=== PATIENT | female | born 1975 | race African-American/Black ===

== ENCOUNTER 2017-03-06 08:57 | Day surgery (SDC) | payer BC, OTHER ==
[~2017-03-06 08:57] MED LIST: RINGER'S SOLUTION,LACTATED 1,000 ML IV PRN; ceFAZolin SODIUM 2 GM in DEXTROSE 5 % IN WATER 50 ML IV PRN
[2017-03-06 09:22] LABS: Hematocrit 36.7 % (37.0-47.0); Hemoglobin 12.4 gm/dL (12.5-16.0); Mean Cell Volume 92.4 fl (78-100); Mean Corpuscular Hemoglobin 31.2 pg (27-31); Mean Corpuscular Hgb Conc 33.8 g/dl (32-36); Mean Platelet Volume 9.5 fl (6.0-9.5); Neutrophil # 5.2 K/mm3 (1.3-6.0); Neutrophil % 62.2 % (42-75.0); Platelet Count 366 K/mm3 (150-450); Red Blood Count 3.97 M/mm3 (4.2-5.4); Red Cell Distribution Width 13.2 % (11.5-14.0); White Blood Count 8.3 K/mm3 (4.0-10.5)
[2017-03-06 09:38] LABS: Albumin * 3.6 gm/dl (3.4-5.0); Anion Gap 12.8 mmol/L (6.8-13.8); BUN/Creatinine Ratio 8.1 (9.0-21.6); Bilirubin, Total 0.6 mg/dL (0.0-1.1); Ca. Corrected For Albumin 8.9 mg/dL (8.4-10.2); Calcium * 8.9 mg/dL (7.9-10.9); Carbon Dioxide 26.7 mmol/L (24-32.6); Potassium 3.5 mmol/L (3.4-4.6)
[2017-03-06] MEDS ORDERED: RINGER'S SOLUTION,LACTATED 1,000 ML IV ONE ×3 (10:15→15:51)
[2017-03-06] MEDS: ceFAZolin SODIUM 1 GM VIAL IV ONE (11:00)
[2017-03-06] MEDS ORDERED: BUPIVACAINE HCL 50 ML VIAL IJ ONE (13:25)
[2017-03-06] MEDS ORDERED: RINGER'S SOLUTION,LACTATED 1,000 ML IV PRN (13:53)
--- NOTE | 2017-03-06 13:53 | OR ---
Operative Report - Dictated Report Narrative: DATE OF PROCEDURE: 03/06/2017 PROCEDURE: 1. Diagnostic laparoscopy 2. Laparoscopic bilateral salpingectomy and removal of cervical stump 3. Diagnostic cystoscopy. ANESTHESIA: General, endotracheal intubation. PREOPERATIVE DIAGNOSES: 1. Abnormal uterine bleeding 2. Chronic pelvic pain 3. Dysmenorrhea 4. Dyspareunia 5. Suspected pelvic endometriosis 6. status post laparoscopic supracervical hysterectomy 7. status post umbilical hernia repair with mesh 8. status post laparoscopic cholecystectomy POSTOPERATIVE DIAGNOSES: 1. Abnormal uterine bleeding 2. Chronic pelvic pain 3. Dysmenorrhea 4. Dyspareunia 5. Pelvic scar tissues without evidence of pelvic endometriosis 6. status post laparoscopic supracervical hysterectomy 7. status post umbilical hernia repair with mesh 8. status post laparoscopic cholecystectomy SURGEON: Lavonne Juan M.D. ELECTRONIC PAGE MAKEUP SYSTEM OPERATOR: Wiliam Newman FINDINGS: 1. Omentum adhesions at the umbilical area and pelvic scar tissues in bilateral pelvic side aburto without evidence of pelvic endometriosis. 2. Both ovaries and tubes appeared normal. There may be a small simple cyst on the right ovary. Cervical stump measured about 3 x 4 cm. 3. On cystoscopy, the bladder appeared intact and bilateral ureteral jets were seen. SPECIMENS: 1). Left fallopian tube, 2) Right fallopian tube, and 3) cervical stump DRAINS: None. URINE OUTPUT: 675 ml BLOOD LOSS: 20 ml or less INTRAOPARATIVE IV FLUIDS: 1300 ml COMPLICATIONS: None. DESCRIPTION OF PROCEDURE: The patient consented to the operation and was taken to the operating room. She was placed on the operating table supine. SCDs were placed on her lower extremities. General anesthesia was induced. Tho grams of ancef was given by IV prior to anesthesia induction. She was repositioned in the dorsal lithotomy position. Her right arm was tucked at her side under the drape. Exam under anesthesia revealed a normal cervix and no adnexal masses. The abdomen was prepped with Chloraprep and the vagina was prepped with Betadine. She was draped in the usual sterile fashion. A time-out procedure was conducted to confirm the correct patient for the correct procedure. After time-out, a Barry catheter was placed into the bladder. A bivalve speculum was placed into the vagina. The vagina and the cervix were prepped with Betadine one more time. The anterior cervix was grasped with a single-tooth tenaculum. Cervical canal measured about 3.5 cm. A medium VCare uterine manipulator was placed with the balloon deflated and sit inside the cervical canal. The single- tooth tenaculum was removed. Sandy speculum was removed. The upper VCare cup was advanced into the vagina to hug the cervix. The lower VCare cup was advanced into the vagina to align with the upper VCare cup and to provide pneumoperitoneum for the procedure. The lower VCare cup was fastened to the uterine manipulator. The surgeon then changed gloves and attention was paid to the abdomen. Due to her history of umbilical hernia repaired with mesh of 8 cm size, it was decided to use the Pulmer's point for Veress needle insertion. An OG tube was inserted by the aneshesia to deflate the stomach. A Veress needle was inserted 3 cm below the costal margin at the left midclavicular line. Intraabdominal placement was confirmed with a saline drop test and with low entry pressure of 4 mmHg. The abdomen was insufflated with CO2 gas to an intraabdominal pressure of 15 mmHg. The Veress needle was removed. A small midline incison was made mid way between the umbilicus and the pubic symphysis to avoid the umbilical mesh. A 5 mm trocar with the laparoscope was inserted through this incision into the abdomen. Intraabdominal placement was confirmed with the laparoscope. Survey of the entry site revealed no trauma to the underlying structures. The omentum adhesion was above this trocar and under previous umbilicus hernia repair with mesh. The omentum adhesion did not interfere with the view to the pelvis, so no action or lysis of adhesion was needed here. The patient was then placed in Trendelenburg position. Three 5 mm trocars were placed in the lower abdomen. Both the left and the right lower quadrant trocars (5 mm) were placed superior and medial to the anterior superior iliac spine to avoid vessels and nerves. A suprapubic trocar ( 5 mm) was placed in the midline. All trocars were placed under the direct visualization of the laparoscope. Survey of the abdomen and pelvis revealed the findings noted above. Attention was now turned to the left side. The left fallopian tube was elevated. Brief dissection was carried out to release the left ovary and tube from the pelvic side wall. The mesosalpinx was divided with the Thunderbeat. The left tube was removed and brought out through the 5 mm trocar. Attention was now turned to the right side. The right fallopian tube was elevated. The mesosalpinx was divided with the Thunderbeat. The right tube was removed and brought out through the 5 mm trocar. The vaginal fornix was seen well through the VCare cup. The Thunderbeat was used to dissect the bladder away from the cervical stump. Both the cardinal ligament and uterosacral ligament complex were dissected and divided on both side with the Thunderbeat. An anterior colpotomy was made over the VCare cup groove. Entry into the vagina was without complications. A circumferential incision was made along the vaginal cervical junction using the VCare cup groove as a guide. The cervix was completely divided from the vagina. The surgeon moved to the vaginal area to retrieve the specimen. The VCare uterine manipulator was removed. The cervical stump was grasped with a single tooth tenaculum and removed through the vagina. The vagina was packed with 2 moist laps to keep the pneumoperitoneum. The surgeon then changed gloves and attention was paid back to the abdomen. The pelvis was thoroughly irrigated with saline. The vaginal opening was closed transversely with 0 Vicryl Endoknot suture in an interrupted fashion using intracorporeal and extracorporeal knot tying. The uterosacral ligament was sutured to the vaginal cuff corner for cuff support. The pelvis was irrigated with saline. Extra fluid was suctioned out from the abdomen and pelvis. There was hemostasis in all sites. The patient was taken out of Trendelenburg. Three lower abdominal trocars were removed. The abdomen was deflated. The midline abdominal trocar with the laparoscope was removed. The skin incision was closed with 4-0 Monocryl suture and 2 to 3 cc of 0.25% Marcaine was infiltrated around each incision for post op pain management. The incisions were covered with Steri-Strips. The vaginal packing was removed. The Barry catheter was removed. A diagnostic cystoscopy was performed. A 70-degree cystoscope was introduced through the urethra into the bladder. Exam of the bladder revealed the bladder was intact. There were urine jets coming out from the left as well as the right ureteral orifice, confirming the integrity of ureters. The cystoscope was removed. The Barry catheter was not replaced. The patient tolerated the procedure well. All counts were correct and the patient was taken to the recovery room in stable condition. Lavonne Juan MD
[2017-03-06] MEDS ORDERED: HYDROcodone/ACETAMINOPHEN 1 EACH TABLET PO PRN (13:55)
[2017-03-06] MEDS ORDERED: ONDANSETRON HCL/PF 2 MG/ML VIAL IV PRN (15:45)
[2017-03-07 13:46] VITALS: BP 132/82
== END 2017-03-06 08:58 | disposition home or self-care (01) ==
LOC: AMB 08:57
PROVIDERS: ATTEND Obstetrics & Gynecology
PROC: 0UB24ZZ Excision of Bilateral Ovaries, Percutaneous Endoscopic Approach (ICD-10-PCS; principal; 2017-03-06)
PROC: 0UT74ZZ Resection of Bilateral Fallopian Tubes, Percutaneous Endoscopic Approach (ICD-10-PCS; 2017-03-06)
PROC: 0UTC4ZZ Resection of Cervix, Percutaneous Endoscopic Approach (ICD-10-PCS; 2017-03-06)
DX: N93.8 Other specified abnormal uterine and vaginal bleeding (principal); G89.29 Other chronic pain; Z90.711 Acquired absence of uterus with remaining cervical stump; N94.6 Dysmenorrhea, unspecified; R10.2 Pelvic and perineal pain; Z79.02 Long term (current) use of antithrombotics/antiplatelets; I25.10 Atherosclerotic heart disease of native coronary artery without angina pectoris; N94.10 Unspecified dyspareunia; I10 Essential (primary) hypertension; E66.9 Obesity, unspecified; Z68.38 Body mass index [BMI] 38.0-38.9, adult; J45.909 Unspecified asthma, uncomplicated; Z86.73 Personal history of transient ischemic attack (TIA), and cerebral infarction without residual deficits; Z79.899 Other long term (current) drug therapy

== ENCOUNTER 2019-04-21 18:44 | Observation (INO) ==
[2019-04-21] MEDS ORDERED: ALBUTEROL SULFATE/IPRATROPIUM 3 ML NEBU IH ONE ×3 (19:09→23:24)
[2019-04-21 19:59] LABS: Hematocrit 38.7 % (37.0-47.0); Hemoglobin 12.7 gm/dL (12.5-16.0); Mean Cell Volume 92.8 fl (78-100); Mean Corpuscular Hemoglobin 30.5 pg (27-31); Mean Corpuscular Hgb Conc 32.8 g/dl (32-36); Mean Platelet Volume 9.7 fl (8-12.5); Neutrophil # 5.2 K/mm3 (1.3-6.0); Neutrophil % 49.1 % (42-75.0); Platelet Count 319 K/mm3 (150-450); Red Blood Count 4.17 M/mm3 (4.2-5.4); Red Cell Distribution Width 14.3 % (11.5-14.0); White Blood Count 10.6 K/mm3 (4.0-10.5)
[2019-04-21 20:16] LABS: ALT 19 U/L (19-67); AST 8 U/L (0-48); Albumin * 3.1 gm/dl (3.4-5.0); Alkaline Phosphatase * 67 U/L (50-170); Anion Gap 13.3 mmol/L (6.8-13.8); Bilirubin, Total 0.2 mg/dL (0.0-1.1); Blood Urea Nitrogen 17 mg/dL (3-23); Ca. Corrected For Albumin 8.7 mg/dL (8.4-10.2); Calcium * 8.3 mg/dL (7.9-10.9); Carbon Dioxide 26.1 mmol/L (24-32.6); Chloride 107 mmol/L (97-106); Glucose * 121 mg/dL (70-110); Potassium 3.4 mmol/L (3.4-4.6); Sodium 143 mmol/L (132-142); Total Protein 6.5 gm/dL (6.2-8.2); Troponin I Less than 0.017 ng/mL (0.00-0.10)
--- NOTE | 2019-04-21 20:58 | ERNOTE ---
Time Seen by Provider: 04/21/19 20:56 Stated Complaint: ASTHMA/BRONCHITIS/PNEUMONIA Presenting Symptoms:: cough, sore throat, runny nose, fever Source: patient, family, RN notes reviewed Exam Limitations: other - loss of voice Immunizations: IMMUNIZATION HX Immunizations Up to Date Yes History of Influenza Vaccine Yes Hx Pneumococcal Vaccination No Allergies/Adverse Reactions: Allergies adhesive tape Allergy (Intermediate, Verified 04/21/19 19:03) Hives Foam Surgical Tape levofloxacin [From Levaquin] Allergy (Mild, Verified 04/21/19 19:03) RASH ketorolac tromethamine [From Toradol] Adverse Reaction (Severe, Verified 04/21/19 19:03) FLARES UP ASTHMA tramadol Adverse Reaction (Severe, Verified 04/21/19 19:03) FLARES UP ASTHMA aspirin Adverse Reaction (Intermediate, Verified 04/21/19 19:03) FLARES UP ASTHMA ibuprofen [From Motrin] Adverse Reaction (Intermediate, Verified 04/21/19 19:03) FLARES UP ASTHMA latex Adverse Reaction (Intermediate, Verified 04/21/19 19:03) rash NSAIDS (Non-Steroidal Anti-Inflamma Adverse Reaction (Intermediate, Verified 04/21/19 19:03) FLARE UP ASTHMA fluoxetine [From Prozac] Adverse Reaction (Mild, Verified 04/21/19 19:03) Diarrhea gabapentin Adverse Reaction (Mild, Verified 04/21/19 19:03) Other weight gain isosorbide Adverse Reaction (Mild, Verified 04/21/19 19:03) Headache nortriptyline Adverse Reaction (Mild, Verified 04/21/19 19:03) WEIGHT GAIN IV contrast Adverse Reaction (Severe, Uncoded 04/21/19 19:03) Anaphylaxis Home Medications: HOME MEDICATIONS diphenhydrAMINE HCL [Benadryl] 25 mg PO Q6H PRN 08/01/17 [Last Taken 08/24/17] albuterol sulfate 90 mcg/actuation aerosol inhaler 2 puff IH .Every 4 hours PRN #8.5 g 10/09/18 [Last Taken Unknown] nitroglycerin 0.4 mg sublingual tablet 0.4 mg SL [id number] PRN #100 tab 10/09/18 [Last Taken Unknown] escitalopram oxalate 20 mg tablet 20 mg PO DAILY #30 tab 11/04/18 [Last Taken Unknown] zolpidem 10 mg tablet 10 mg PO HS PRN #30 tab 11/20/18 [Last Taken Unknown] amlodipine 5 mg tablet 5 mg PO DAILY 12/11/18 [Last Taken Unknown] simvastatin 20 mg tablet 20 mg PO DAILY 12/11/18 [Last Taken Unknown] montelukast 10 mg tablet 10 mg PO QPM #30 tab 12/16/18 [Last Taken Unknown] metoprolol tartrate 50 mg tablet 25 mg PO BID #30 tab 12/21/18 [Last Taken 12/25/18 07:30] Ondansetron [Zofran Odt] 8 mg PO Q6H PRN #20 tab.rapdis 12/26/18 [Last Taken Unknown] polyethylene glycol 3350 17 gram/dose oral powder 8.5 g PO DAILY #255 g 01/27/19 [Last Taken Unknown] dipyridamole 75 mg tablet 75 mg PO TID tab 02/17/19 [Last Taken Unknown] dicyclomine 10 mg capsule See Rx Instructions .ROUTE .COMPLEX #120 unspecified 02/25/19 [Last Taken Unknown] acetaminophen 300 mg-codeine 30 mg tablet 2 tab PO BID PRN #100 tab 03/18/19 [Last Taken Unknown] clonazepam 1 mg tablet 1 mg PO BID #60 tab 03/18/19 [Last Taken Unknown] cyclobenzaprine 10 mg tablet 10 mg PO HS #14 tab 03/18/19 [Last Taken Unknown] cefdinir 300 mg capsule 300 mg PO BID 10 Days #20 cap 04/14/19 [Last Taken Unknown] oxycodone-acetaminophen 5 mg-325 mg tablet 1 tab PO Q4H PRN #30 tab 04/14/19 [Last Taken Unknown] prednisone 10 mg tablet 30 mg PO BID #60 tab 04/14/19 [Last Taken Unknown] ipratropium 0.5 mg-albuterol 3 mg (2.5 mg base)/3 mL nebulization soln 3 ml IH QID PRN #15 ml 04/15/19 [Last Taken Unknown] nebulizers See Rx Instructions .ROUTE .MEDSUPPLY #1 ea 04/15/19 [Last Taken Unknown] - History of Present Ilness Narrative: Patient was here on the 4th, treated for asthma, seemed to be getting better. Today she presents and she is feeling worse again. Her throat hurts, her head hurts, it hurts to breathe, she is wheezing and lacking energy. She states that her entire body hurts, her chest, her abdomen, her extremities, "everything". Timing: constant, getting worse Severity: severe Frequency/Possible Cause: Reports: occasional episodes Modifying Factors - Improves: Reports: nothing Modifying Factors - Worsens: Reports: activity, coughing, deep breath Associated Symptoms: Reports: chest pain/soreness, cough, shortness of breath, wheezing, facial pain, nasal congestion, nasal drainage, dizziness, lightheadedness, headache, sore throat, muscle aches, fever/chills Prior Treatment: Reports: recently seen, treated by physician Review of Systems - Review of Systems Constitutional: Present: recent illness, fever, chills, weakness, fatigue, malaise EYE: Present: eye pain. Absent: eye discharge, blurred vision, double vision ENT: Present: sore throat. Absent: ear pain, ear discharge Respiratory: Present: shortness of breath, cough, wheezing Cardiology: Present: chest pain. Absent: palpitations Gastrointestinal/Abdominal: Present: nausea, abdominal pain. Absent: vomiting, diarrhea Genitourinary: Absent: frequency, pain, dysuria Musculoskeletal: Present: back pain, muscle pain, joint pain Skin: Absent: rash, dryness, lesions Neurological: Present: depressed, weakness Endocrine: Absent: excessive sweating, flushing Psych: Present: depressed Medical History (Last Reviewed 04/21/19 @ 21:18 by Tala Jefferson) Injury of left shoulder (Acute) Obesity (Chronic) Knee pain, bilateral (Chronic) Chronic left hip pain (Chronic) Shoulder pain, left (Chronic) Onset Date: Unknown Encounter for well woman exam with routine gynecological exam (Acute) Insomnia (Chronic) Otitis externa (Acute) most likely being exacerbated by congestions Anxiety (Acute) Situational anxiety (Chronic) Situational stress (Acute) Dysphagia (Acute) Hypothyroidism (Chronic) Lumbar disc herniation (Acute) Right lumbar radiculopathy (Acute) SLAP lesion of left shoulder (Chronic) BMI 40.0-44.9, adult (Chronic) Migraine (Chronic) Generalized anxiety disorder (Chronic) Hyperlipidemia (Chronic) Benign essential hypertension (Chronic) Moderate persistent asthma (Chronic) Abnormal mammogram (Chronic) CAD (coronary artery disease) (Chronic) Elevated antinuclear antibody (HARJIT) level (Acute) Low back pain (Chronic) Arthritis (Chronic) Chest pain of uncertain etiology (Acute) Unstable angina (Acute) Chest pain, rule out acute myocardial infarction (Acute) Musculoskeletal chest pain (Acute) Chest pain (Chronic) Chronic recurrent Arthritis of left acromioclavicular joint (Resolved) Subacromial bursitis of left shoulder joint (Chronic) Pleurisy (Acute) Bronchitis (Acute) Back pain (Acute) AC (acromioclavicular) arthritis Onset Date: 05/10/16 Anemia Onset Date: 09/20/16 Anxiety Asthma Benign essential hypertension Onset Date: 03/2016 Bilateral sciatica Onset Date: 04/2016 CAD (coronary artery disease) Onset Date: 07/2017 Cardiac stent age 35 Chronic chest pain Onset Date: 06/2017 Chronic pain syndrome Onset Date: 12/2015 Heart palpitations Onset Date: ~12/2015 Hyperlipemia Hyperlipidemia Onset Date: 12/2015 Inguinal hernia Onset Date: 09/2016 doris Left shoulder pain Onset Date: 02/2016 Lives with spouse Migraine Onset Date: 12/2015 Obesity Pelvic pain Onset Date: 11/2016 possibly endometriosis Shoulder impingement Onset Date: 04/2016 Small vessel disease Onset Date: 07/2017 Smoking never Subacromial bursitis of left shoulder joint Onset Date: 04/2016 Vitamin B12 deficiency alcohol none maker heart blockage Onset Date: ~02/10/11 Kidney stones Onset Date: ~07/2017 Surgical History: Surgical History (Last Reviewed 04/21/19 @ 21:18 by Tala Jefferson) Cholecystectomy planned (Acute) H/O arthroscopy of shoulder Onset Date: 06/10/17 lt with biceps tenotomy, subacromial busectomy, distal clavicle resection-Dr. Sanchez H/O bilateral salpingectomy Onset Date: 03/06/17 Dr. Juan H/O cystoscopy Onset Date: 03/06/17 Dr. Juan diagnostic H/O heart artery stent Onset Date: 02/10/11 H/O lithotripsy Onset Date: 08/15/17 left kidney, around november or december of 2018 H/O tubal ligation Onset Date: 1987 History of cholecystectomy Onset Date: ~2013 lap History of dilatation and curettage Onset Date: 03/06/17 Dr. Juan History of hernia repair Onset Date: ~2014 2012-left inguinal. 2015-umbilical History of partial hysterectomy x2 for a full removal History of renal stent Onset Date: 08/15/17 Dr. Holt- at [facility] S/P epidural steroid injection Onset Date: 08/25/17 at [facility]/ low back diagnostic laparoscopy Onset Date: 03/06/17 Dr. Juan excision of cervical stump by abdominal approach Onset Date: 03/06/17 Dr. Juan Family History: Family History (Last Reviewed 04/21/19 @ 21:18 by Tala Jefferson) Father Asthma full health history unknown Mother Diabetes type 2 full health history unknown Son Type 1 diabetes mellitus Daughter Alive and well Son Alive and well Sister Breast cancer Brother Alive and well Social History: (Last Reviewed 04/21/19 @ 21:18 by Tala Jefferson) Social History: adopted: No Marital status: lives independently: No household members: spouse, children caregiver/support person: No current occupational status: unemployed Highest education level completed: Associate degree: academi Service: No Tobacco: Smoking Status: Never smoker Alcohol: alcohol intake: current Alcohol type: wine alcohol intake frequency: holiday/special occasion details: glass of wine or 2 Substance Use: substance use type: marijuana Dietary Habits: caffeine: Yes Type: coffee Physical Exam - Physical Exam General Appearance: Present: wd/wn, alert, moderate distress, lethargic Head Exam: Present: normal inspection, no evidence of injury Eye Exam: Normal inspection: bilateral, PERRL: bilateral, EOMI: bilateral Ears, Nose, Throat: Present: dry mucous membranes Neck: Present: normal inspection, nontender Respiratory: Present: accessory muscle use, wheezing Cardiovascular/Chest: Present: regular rate, rhythm, no murmur, normal peripheral pulses Gastrointestinal/Abdominal: Present: normal bowel sounds, nontender, nondisten ded, soft Extremity Exam: Present: normal inspection, non-tender, normal range of motion, no edema Neurological Exam: Present: alert, oriented Skin Exam: Present: normal color, warm/dry Lymphatic Exam: Present: no adenopathy Progress - Results and Orders Patient's Lab Results:: I have reviewed the patient's lab results. Results and Orders: Laboratory Results - last 24 hr 04/21/19 04/21/19 04/21/19 19:55 19:55 21:17 WBC 10.6 H RBC 4.17 L Hgb 12.7 Hct 38.7 MCV 92.8 MCH 30.5 MCHC 32.8 RDW 14.3 H Plt Count 319 MPV 9.7 Immature Gran % (Auto) 0.40 Immature Gran # (Auto) 0.04 H Neutrophils % 49.1 Lymphocytes % 44.0 Monocytes % 5.7 Eosinophils % 0.7 Basophils % 0.1 Nucleated RBC % 0.0 Neutrophils # 5.2 Lymphocytes # 4.68 H Monocytes # 0.6 Eosinophils # 0.1 Absolute Basophils 0.0 Sodium 143 H Plasma Sodium 143 H Potassium 3.4 Chloride 107 H Carbon Dioxide 26.1 Anion Gap 13.3 BUN 17 Creatinine 0.85 Est GFR (Non-Af Amer) 94 BUN/Creatinine Ratio 20.0 Random Glucose 121 H Calcium 8.3 Calcium Adj for Albumin 8.7 Total Bilirubin 0.2 AST 8 ALT 19 Alkaline Phosphatase 67 Troponin I Less than 0.017 Total Protein 6.5 Albumin 3.1 L Influenza Type A Ag Negative Influenza Type B Ag Negative - Vital Signs Patient's Vital Signs:: I have reviewed the patient's vital signs. Vital Signs: Vital Signs 04/21/19 18:58 04/21/19 19:15 04/21/19 19:30 Temperature 36.7 C 36.9 C Pulse Rate 93 100 86 Respiratory Rate 24 H 24 H 20 Blood Pressure 137/98 H 132/93 H O2 Sat by Pulse Oximetry 95 98 95 04/21/19 20:20 Temperature 36.8 C Pulse Rate 88 Respiratory Rate 22 H Blood Pressure 137/83 O2 Sat by Pulse Oximetry 94 - Progress/Reassessment Chief Complaint: Asthma Progress Note-Subjective: 04/22/19 05:27 Patient continued to have problems breathing. I tried Solumedrol, breathing treatments, without a good response. She has been huffing and puffing. I went and told the patient that I thought she needed to be admitted, the patient agreed, stating she didn't want to but she felt that she did need to be admitted. I called Dr. Schneider (physician epic application coordinator) at 01:47 AM. He agreed to admit the patient as an observation patient. Departure Clinical Impression: Moderate persistent asthma Qualifiers: Asthma complication type: with acute exacerbation Qualified Code(s): J45.41 - Moderate persistent asthma with (acute) exacerbation Asthma exacerbation Qualifiers: Asthma severity: moderate Asthma persistence: persistent Qualified Code(s): J45.41 - Moderate persistent asthma with (acute) exacerbation - Departure Disposition: Short Term Hospital Inpatient Condition: Stable
[2019-04-21] MEDS ORDERED: METHYLPREDNISOLONE SOD SUCC/PF 125 MG/2 ML VIAL IV ONE (21:12)
[2019-04-21] MEDS ORDERED: NORMAL SALINE 1,000 ML IV PRN (21:13)
[2019-04-21] MEDS ORDERED: MORPHINE SULFATE 4 MG/ML SYRG IV ONE ×2 (21:34→22:30)
[2019-04-22] MEDS ORDERED: ALBUTEROL SULFATE/IPRATROPIUM 3 ML NEBU IH SCH (00:30)
[2019-04-22] MEDS ORDERED: ALBUTEROL SULFATE 2.5 MG/0.5 ML VIAL.NEB IH PRN (00:32)
[2019-04-22] MEDS: ALBUTEROL SULFATE/IPRATROPIUM 3 ML NEBU IH SCH ×4 (01:12→13:23)
[2019-04-22] MEDS ORDERED: diphenhydrAMINE HCL 25 MG CAPSULE PO PRN (02:29)
[2019-04-22] MEDS: oxyCODONE HCL/ACETAMINOPHEN 1 TAB TABLET PO PRN ×3 (02:49→11:31)
[2019-04-22] MEDS ORDERED: NORMAL SALINE 1,000 ML IV PRN (08:17)
[2019-04-22] MEDS ORDERED: ENOXAPARIN SODIUM 40 MG/0.4 ML SYRG SC SCH (08:30)
[2019-04-22] MEDS ORDERED: predniSONE 20 MG TABLET PO SCH (09:00)
[2019-04-22] MEDS ORDERED: ACETAMINOPHEN 325 MG TABLET PO PRN (10:25)
[2019-04-22] MEDS ORDERED: NITROGLYCERIN 0.4 MG/TAB BTL SL PRN (10:25)
[2019-04-22] MEDS ORDERED: ZOLPIDEM TARTRATE 10 MG TABLET PO PRN (10:25)
[2019-04-22] MEDS ORDERED: ONDANSETRON 8 MG TAB.RAPDIS PO PRN (10:25)
[2019-04-22] MEDS ORDERED: MAGNESIUM HYDROXIDE 30 ML UDC PO SCH (10:30)
[2019-04-22] MEDS ORDERED: METOPROLOL TARTRATE 25 MG TABLET PO SCH (10:45)
[2019-04-22] MEDS ORDERED: IPRATROPIUM BROMIDE 0.5 MG/2.5 ML VIAL.NEB IH SCH (11:00)
[2019-04-22] MEDS ORDERED: DOXYCYCLINE HYCLATE 100 MG TABLET PO SCH (11:15)
[2019-04-22 11:32] LABS: Urine Bilirubin Negative (NEGATIVE); Urine Blood Negative /ul (NEGATIVE); Urine Ketone Negative (NEGATIVE); Urine Nitrite Negative (NEGATIVE); Urine Protein Negative (NEGATIVE); Urine Urobilinogen Normal (NORMAL); Urine pH 7.5 pH (5.0-7.0)
[2019-04-22 11:45] LABS: Urine Appearance Clear (CLEAR); Urine Color Yellow
[2019-04-22 11:46] LABS: Urine Bacteria TRACE; Urine RBC None Seen /hpf (0-5); Urine WBC TRACE /hpf (0-5)
--- NOTE | 2019-04-22 12:23 | HP ---
Chief Complaint - Chief Complaint Date of Service: 04/22/19 Time of Service: 11:40 Chief Complaint: Dyspnea History of Present Illness: 43 y/o female with asthma and chronic low back pain who presented to my office 03/18/19. She complained then of a sore throat and productive cough. She complained she had had a sore throat for 3 weeks. I treated her with a z-donnie. She returned to the office 04/14/19 with 5 days of increased cough and congestion. she works at a daycare. I treated her with cefdinir and 10 days of prednisone. She had rhonchi in each base, and diffuse mild wheezing. She presented to our ER last evening because of increased lung congestion and cough. She was given 3 sequential albuterol nebulizer treatment, and felt modestly better. Her breathing is somewhat better this morning. She also has chronic non obstructing kidney stones. She also has chronic low back pain, sometimes with right sciatica. She complains of a painful lump under her right axilla. She's had no fever, chills or sweats with this illness. Weight has remained stable. Medical History (Last Reviewed 04/22/19 @ 12:27 by Cain Donahue MD) Injury of left shoulder (Acute) Obesity (Chronic) Knee pain, bilateral (Chronic) Chronic left hip pain (Chronic) Shoulder pain, left (Chronic) Onset Date: Unknown Encounter for well woman exam with routine gynecological exam (Acute) Insomnia (Chronic) Otitis externa (Acute) most likely being exacerbated by congestions Anxiety (Acute) Situational anxiety (Chronic) Situational stress (Acute) Dysphagia (Acute) Hypothyroidism (Chronic) Lumbar disc herniation (Acute) Right lumbar radiculopathy (Acute) SLAP lesion of left shoulder (Chronic) BMI 40.0-44.9, adult (Chronic) Migraine (Chronic) Generalized anxiety disorder (Chronic) Hyperlipidemia (Chronic) Benign essential hypertension (Chronic) Moderate persistent asthma (Chronic) Abnormal mammogram (Chronic) CAD (coronary artery disease) (Chronic) Elevated antinuclear antibody (HARJIT) level (Acute) Low back pain (Chronic) Arthritis (Chronic) Chest pain of uncertain etiology (Acute) Unstable angina (Acute) Chest pain, rule out acute myocardial infarction (Acute) Musculoskeletal chest pain (Acute) Chest pain (Chronic) Chronic recurrent Arthritis of left acromioclavicular joint (Resolved) Subacromial bursitis of left shoulder joint (Chronic) Pleurisy (Acute) Bronchitis (Acute) Back pain (Acute) AC (acromioclavicular) arthritis Onset Date: 05/10/16 Anemia Onset Date: 09/20/16 Anxiety Asthma Benign essential hypertension Onset Date: 03/2016 Bilateral sciatica Onset Date: 04/2016 CAD (coronary artery disease) Onset Date: 07/2017 Cardiac stent age 35 Chronic chest pain Onset Date: 06/2017 Chronic pain syndrome Onset Date: 12/2015 Heart palpitations Onset Date: ~12/2015 Hyperlipemia Hyperlipidemia Onset Date: 12/2015 Inguinal hernia Onset Date: 09/2016 doris Left shoulder pain Onset Date: 02/2016 Lives with spouse Migraine Onset Date: 12/2015 Obesity Pelvic pain Onset Date: 11/2016 possibly endometriosis Shoulder impingement Onset Date: 04/2016 Small vessel disease Onset Date: 07/2017 Smoking never Subacromial bursitis of left shoulder joint Onset Date: 04/2016 Vitamin B12 deficiency alcohol none maker heart blockage Onset Date: ~02/10/11 Kidney stones Onset Date: ~07/2017 Surgical History: Surgical History (Last Reviewed 04/22/19 @ 12:27 by Cain Donahue MD) Cholecystectomy planned (Acute) H/O arthroscopy of shoulder Onset Date: 06/10/17 lt with biceps tenotomy, subacromial busectomy, distal clavicle resection-Dr. Sanchez H/O bilateral salpingectomy Onset Date: 03/06/17 Dr. Jaun H/O cystoscopy Onset Date: 03/06/17 Dr. Juan diagnostic H/O heart artery stent Onset Date: 02/10/11 H/O lithotripsy Onset Date: 08/15/17 left kidney, around november or december of 2018 H/O tubal ligation Onset Date: 1987 History of cholecystectomy Onset Date: ~2013 lap History of dilatation and curettage Onset Date: 03/06/17 Dr. Juan History of hernia repair Onset Date: ~2014 2012-left inguinal. 2014-umbilical History of partial hysterectomy x2 for a full removal History of renal stent Onset Date: 08/15/17 Dr. Holt- at [facility] S/P epidural steroid injection Onset Date: 08/25/17 at [facility]/ low back diagnostic laparoscopy Onset Date: 03/06/17 Dr. Juan excision of cervical stump by abdominal approach Onset Date: 03/06/17 Dr. Juan Family History: Family History (Last Reviewed 04/22/19 @ 12:27 by Cain Donahue MD) Father Asthma full health history unknown Mother Diabetes type 2 full health history unknown Son Type 1 diabetes mellitus Daughter Alive and well Son Alive and well Sister Breast cancer Brother Alive and well Social History: (Last Reviewed 04/22/19 @ 12:27 by Cain Donahue MD) Social History: adopted: No Marital status: lives independently: No household members: spouse, children caregiver/support person: No current occupational status: unemployed Highest education level completed: Associate degree: [employer] Service: No Tobacco: Smoking Status: Never smoker Alcohol: alcohol intake: current Alcohol type: wine alcohol intake frequency: holiday/special occasion details: glass of wine or 2 Substance Use: substance use type: marijuana Dietary Habits: caffeine: Yes Type: coffee Review Of Systems (GEN) - Review of Systems Generalized/Overall Review: Present: Malaise. Absent: Chills, Fever EENTM: Present: Nose Congestion, Throat Pain. Absent: Eye Pain, Blurred Vision Cardiac: Absent: Chest Pain, Palpitations Abdominal: Present: Abdominal Pain. Absent: Nausea, Constipation, Diarrhea Genitourinary: Present: No Symptoms Reported Musculoskeletal: Present: Back Pain Neurological: Present: Headache - chronic migraine, Anxiety Skin: Absent: Lesions, Rash Endocrine: Present: Intolerance to Cold, Intolerance to Heat Misc: All systems neg except as marked Immunizations: IMMUNIZATION HX Immunizations Up to Date Yes History of Influenza Vaccine Yes Hx Pneumococcal Vaccination No Allergies/Adverse Reactions: Allergies Allergy/AdvReac Type Severity Reaction Status Date / Time adhesive tape Allergy Intermediate Hives Verified 04/21/19 19:03 levofloxacin [From Levaquin] Allergy Mild RASH Verified 04/21/19 19:03 ketorolac tromethamine AdvReac Severe FLARES UP Verified 04/21/19 19:03 [From Toradol] ASTHMA tramadol AdvReac Severe FLARES UP Verified 04/21/19 19:03 ASTHMA aspirin AdvReac Intermediate FLARES UP Verified 04/21/19 19:03 ASTHMA ibuprofen [From Motrin] AdvReac Intermediate FLARES UP Verified 04/21/19 19:03 ASTHMA latex AdvReac Intermediate rash Verified 04/21/19 19:03 NSAIDS (Non-Steroidal AdvReac Intermediate FLARE UP Verified 04/21/19 19:03 Anti-Inflamma ASTHMA fluoxetine [From Prozac] AdvReac Mild Diarrhea Verified 04/21/19 19:03 gabapentin AdvReac Mild Other Verified 04/21/19 19:03 isosorbide AdvReac Mild Headache Verified 04/21/19 19:03 nortriptyline AdvReac Mild WEIGHT GAIN Verified 04/21/19 19:03 IV contrast AdvReac Severe Anaphylaxis Uncoded 04/21/19 19:03 Home Medications: HOME MEDICATIONS diphenhydrAMINE HCL [Benadryl] 25 mg PO Q6H PRN 08/01/17 [Last Taken 08/24/17] albuterol sulfate 90 mcg/actuation aerosol inhaler 2 puff IH .Every 4 hours PRN #8.5 g 10/09/18 [Last Taken Unknown] nitroglycerin 0.4 mg sublingual tablet 0.4 mg SL [id number] PRN #100 tab 10/09/18 [Last Taken Unknown] escitalopram oxalate 20 mg tablet 20 mg PO DAILY #30 tab 11/04/18 [Last Taken Unknown] zolpidem 10 mg tablet 10 mg PO HS PRN #30 tab 11/20/18 [Last Taken Unknown] amlodipine 5 mg tablet 5 mg PO DAILY 12/11/18 [Last Taken Unknown] simvastatin 20 mg tablet 20 mg PO DAILY 12/11/18 [Last Taken Unknown] montelukast 10 mg tablet 10 mg PO QPM #30 tab 12/16/18 [Last Taken Unknown] metoprolol tartrate 50 mg tablet 25 mg PO BID #30 tab 12/21/18 [Last Taken 12/25/18 07:30] Ondansetron [Zofran Odt] 8 mg PO Q6H PRN #20 tab.rapdis 12/26/18 [Last Taken Unknown] polyethylene glycol 3350 17 gram/dose oral powder 8.5 g PO DAILY #255 g 01/27/19 [Last Taken Unknown] dipyridamole 75 mg tablet 75 mg PO TID tab 02/17/19 [Last Taken Unknown] dicyclomine 10 mg capsule See Rx Instructions .ROUTE .COMPLEX #120 unspecified 02/25/19 [Last Taken Unknown] acetaminophen 300 mg-codeine 30 mg tablet 2 tab PO BID PRN #100 tab 03/18/19 [Last Taken Unknown] clonazepam 1 mg tablet 1 mg PO BID #60 tab 03/18/19 [Last Taken Unknown] cyclobenzaprine 10 mg tablet 10 mg PO HS #14 tab 03/18/19 [Last Taken Unknown] cefdinir 300 mg capsule 300 mg PO BID 10 Days #20 cap 04/14/19 [Last Taken Unknown] oxycodone-acetaminophen 5 mg-325 mg tablet 1 tab PO Q4H PRN #30 tab 04/14/19 [Last Taken Unknown] prednisone 10 mg tablet 30 mg PO BID #60 tab 04/14/19 [Last Taken Unknown] ipratropium 0.5 mg-albuterol 3 mg (2.5 mg base)/3 mL nebulization soln 3 ml IH QID PRN #15 ml 04/15/19 [Last Taken Unknown] nebulizers See Rx Instructions .ROUTE .MEDSUPPLY #1 ea 04/15/19 [Last Taken Unknown] Exam - Exam Vital Signs: Vital Signs - Last Taken Temp 37.0 C 04/22/19 10:10 Pulse 90 04/22/19 11:30 Resp 22 H 04/22/19 10:10 BP 147/87 H 04/22/19 11:30 Pulse Ox 99 04/22/19 10:10 Constitutional: Present: Alert, Oriented x3, Cooperative, Well developed, Obese - bmi 38.3 ENT Exam: Present: normal ENT inspection, hearing grossly normal Eye Exam: bilateral eye: normal inspection, PERRL, EOMI Neck: Present: normal inspection. Absent: lymphadenopathy (R), lymphadenopathy (L), thyromegaly Back Exam: Present: normal inspection, no CVA tenderness, other - muscle tenderness mild paralumbar areas Respiratory: Present: no respiratory distress, wheezing Cardiovascular/Chest: Present: regular rate, rhythm, no edema, no gallop, no JVD, no murmur Peripheral Pulses: carotid (R): 1+, carotid (L): 1+ Abdomen: Present: Normal bowel sounds, soft, nontender, nondistended, no hepatospenomegaly, no masses, obese /Rectal: Present: Exam deferred Extremity: Present: non-tender, normal inspection Skin Exam: Present: normal color, warm/dry, no cyanosis Lymphatic: Present: axilla node tender (L) - hard to feel. smooth rounded and tender. mobile. Neurologic: Present: no motor/sensory deficits. Absent: abnormal gait Appearance: Present: appropriate appearance, neat, no memory impairment. Absent: appropriate insight Eye contact: Present: cooperative, good eye contact, normal speech Thoughts: Present: normal thought pattern Diagnostic Studies: Abnormal Lab Results 04/21/19 04/21/19 Range/Units 19:55 19:55 WBC 10.6 H (4.0-10.5) K/mm3 RBC 4.17 L (4.2-5.4) M/mm3 RDW 14.3 H (11.5-14.0) % Immature Gran # (Auto) 0.04 H (0.000-0.0310) K/mm3 Lymphocytes # 4.68 H (1.5-3.5) k/mm3 Sodium 143 H (132-142) mmol/L Plasma Sodium 143 H (130-142) mmol/L Chloride 107 H (97-106) mmol/L Random Glucose 121 H (70-110) mg/dL Albumin 3.1 L (3.4-5.0) gm/dl Laboratory Results WBC 10.6 K/mm3 (4.0-10.5) H 04/21/19 19:55 RBC 4.17 M/mm3 (4.2-5.4) L 04/21/19 19:55 Hgb 12.7 gm/dL (12.5-16.0) 04/21/19 19:55 Hct 38.7 % (37.0-47.0) 04/21/19 19:55 MCV 92.8 fl (78-100) 04/21/19 19:55 MCH 30.5 pg (27-31) 04/21/19 19:55 MCHC 32.8 g/dl (32-36) 04/21/19 19:55 RDW 14.3 % (11.5-14.0) H 04/21/19 19:55 Plt Count 319 K/mm3 (150-450) 04/21/19 19:55 MPV 9.7 fl (8-12.5) 04/21/19 19:55 Immature Gran % (Auto) 0.40 % (0.001-0.429) 04/21/19 19:55 Immature Gran # (Auto) 0.04 K/mm3 (0.000-0.0310) H 04/21/19 19:55 Neutrophils % 49.1 % (42-75.0) 04/21/19 19:55 Lymphocytes % 44.0 % (20-51) 04/21/19 19:55 Monocytes % 5.7 % (0.0-9) 04/21/19 19:55 Eosinophils % 0.7 % (0.0-3.0) 04/21/19 19: Basophils % 0.1 % (0.0-1.0) 04/21/19 19:55 Nucleated RBC % 0.0 k/mm3 (0-1) 04/21/19 19:55 Neutrophils # 5.2 K/mm3 (1.3-6.0) 04/21/19 19:55 Lymphocytes # 4.68 k/mm3 (1.5-3.5) H 04/21/19 19:55 Monocytes # 0.6 k/mm3 (0.0-1.0) 04/21/19 19:55 Eosinophils # 0.1 k/mm3 (0.0-0.7) 04/21/19 19:55 Absolute Basophils 0.0 k/mm3 (0.0-0.1) 04/21/19 19:55 Sodium 143 mmol/L (132-142) H 04/21/19 19:55 Plasma Sodium 143 mmol/L (130-142) H 04/21/19 19:55 Potassium 3.4 mmol/L (3.4-4.6) 04/21/19 19:55 Chloride 107 mmol/L (97-106) H 04/21/19 19:55 Carbon Dioxide 26.1 mmol/L (24-32.6) 04/21/19 19:55 Anion Gap 13.3 mmol/L (6.8-13.8) 04/21/19 19:55 BUN 17 mg/dL (3-23) 04/21/19 19:55 Creatinine 0.85 mg/dL (0.4-1.4) 04/21/19 19:55 Est GFR (Non-Af Amer) 94 mL/min (60-130) 04/21/19 19:55 BUN/Creatinine Ratio 20.0 (9.0-21.6) 04/21/19 19:55 Random Glucose 121 mg/dL (70-110) H 04/21/19 19:55 Calcium 8.3 mg/dL (7.9-10.9) 04/21/19 19:55 Calcium Adj for Albumin 8.7 mg/dL (8.4-10.2) 04/21/19 19:55 Total Bilirubin 0.2 mg/dL (0.0-1.1) 04/21/19 19:55 AST 8 U/L (0-48) 04/21/19 19:55 ALT 19 U/L (19-67) 04/21/19 19:55 Alkaline Phosphatase 67 U/L (50-170) 04/21/19 19: Troponin I Less than 0.017 ng/mL (0.00-0.10) 04/21/19 19: Total Protein 6.5 gm/dL (6.2-8.2) 04/21/19 19:55 Albumin 3.1 gm/dl (3.4-5.0) L 04/21/19 19:55 Urine Color Yellow 04/22/19 11:28 Urine Appearance Clear (CLEAR) 04/22/19 11:28 Urine pH 7.5 pH (5.0-7.0) 04/22/19 11:28 Ur Specific [place] 1.010 SP.GR. (1.005-1.010) 04/22/19 11:28 Urine Protein Negative mg/dL (NEGATIVE) 04/22/19 11:28 Urine Glucose (UA) Negative mg/dL (NEGATIVE) 04/22/19 11:28 Urine Ketones Negative mg/dL (NEGATIVE) 04/22/19 11:28 Urine Blood Negative /ul (NEGATIVE) 04/22/19 11:28 Urine Nitrate Negative (NEGATIVE) 04/22/19 11:28 Urine Bilirubin Negative mg/dl (NEGATIVE) 04/22/19 11:28 Urine Urobilinogen Normal EU/dl (NORMAL) 04/22/19 11:28 Ur Leukocyte Esterase Negative /ul (NEGATIVE) 04/22/19 11:28 Urine RBC None seen /hpf (0-5) 04/22/19 11:28 Urine WBC Trace /hpf (0-5) 04/22/19 11:28 Ur Epithelial Cells 0-5 /hpf (0-5) 04/22/19 11:28 Urine Bacteria Trace (NONE) 04/22/19 11:28 Influenza Type A Ag Negative (NEGATIVE) 04/21/19 21:17 Influenza Type B Ag Negative (NEGATIVE) 04/21/19 21:17 wbc minimally elevated. sodium minimally elevated. will check again as an outpatient. O2 sats continually 99-100% all through the morning. Assessment/Plan - Assessment/Plan (1) Asthma exacerbation Assessment: acute on chronic. continue steroids as an outpatient. there was concern for bacterial infection, so we will switch cefdinir to doxycyline. Problem: Acute Qualifiers: Asthma severity: moderate Asthma persistence: persistent Qualified Code(s): J45.41 - Moderate persistent asthma with (acute) exacerbation (2) Irritable bowel syndrome Assessment: xray today is suggestive of constipation. will treat with laxative. Problem: Chronic Qualifiers: Irritable bowel syndrome type: with both diarrhea and constipation Qualified Code(s): K58.2 - Mixed irritable bowel syndrome (3) Obesity Problem: Chronic Qualifiers: Obesity type: due to excess calories Obesity classification: adult class 3 (BMI >= 40) Serious obesity comorbidity presence: without serious comorbidity Body mass index: BMI 40.0-44.9 Qualified Code(s): E66.01 - Morbid (severe) obesity due to excess calories; Z68.41 - Body mass index (BMI) 40.0-44.9, adult (4) Lumbar disc herniation Problem: Chronic (5) Generalized anxiety disorder Problem: Chronic (6) Low back pain Problem: Chronic Qualifiers: Chronicity: chronic Back pain laterality: midline Sciatica presence: with sciatica Sciatica laterality: sciatica of right side Qualified Code(s): M54.41 - Lumbago with sciatica, right side; G89.29 - Other chronic pain (7) Kidney stones Assessment: non obstructing Problem: Chronic (8) Lymphadenopathy Assessment: subacute. will followup as an outpatient. Problem: Acute
--- NOTE | 2019-04-22 12:58 | DS ---
(1) Asthma exacerbation Problem: Acute Qualifiers: Asthma severity: moderate Asthma persistence: persistent Qualified Code(s): J45.41 - Moderate persistent asthma with (acute) exacerbation (2) Irritable bowel syndrome Problem: Chronic Qualifiers: Irritable bowel syndrome type: with both diarrhea and constipation Qualified Code(s): K58.2 - Mixed irritable bowel syndrome (3) Obesity Problem: Chronic Qualifiers: Obesity type: due to excess calories Obesity classification: adult class 3 (BMI >= 40) Serious obesity comorbidity presence: without serious comorbidity Body mass index: BMI 40.0-44.9 Qualified Code(s): E66.01 - Morbid (severe) obesity due to excess calories; Z68.41 - Body mass index (BMI) 40.0-44.9, adult (4) Lumbar disc herniation Problem: Chronic (5) Generalized anxiety disorder Problem: Chronic (6) Low back pain Problem: Chronic Qualifiers: Chronicity: chronic Back pain laterality: midline Sciatica presence: with sciatica Sciatica laterality: sciatica of right side Qualified Code(s): M54.41 - Lumbago with sciatica, right side; G89.29 - Other chronic pain (7) Kidney stones Problem: Chronic (8) Lymphadenopathy Problem: Acute Hospital Course: 43 y/o female with asthma and chronic low back pain who presented to my office 03/18/19. She complained then of a sore throat and productive cough. She complained she had had a sore throat for 3 weeks. I treated her with a z-donnie. She returned to the office 04/14/19 with 5 days of increased cough and congestion. she works at a daycare. I treated her with cefdinir and 10 days of prednisone. She had rhonchi in each base, and diffuse mild wheezing. She presented to our ER last evening because of increased lung congestion and cough. She was given 3 sequential albuterol nebulizer treatment, and felt modestly better. Her breathing is somewhat better this morning. She has irritable bowel syndrome, and xray today suggests constipation. She also has chronic non obstructing kidney stones. She also has chronic low back pain, sometimes with right sciatica. She complains of a painful lump under her right axilla. She's had no fever, chills or sweats with this illness. Weight has remained stable. Her O2 sats this morning have been 99-100%. Her vitals are stable. Procedures Performed: none Results and Findings: Lab Pending Results 04/21/19 19:55: WBC 10.6 H, RBC 4.17 L, Hgb 12.7, Hct 38.7, MCV 92.8, MCH 30.5, MCHC 32.8, RDW 14.3 H, Plt Count 319, MPV 9.7, Immature Gran % (Auto) 0.40, Immature Gran # (Auto) 0.04 H, Neutrophils % 49.1, Lymphocytes % 44.0, Monocytes % 5.7, Eosinophils % 0.7, Basophils % 0.1, Nucleated RBC % 0.0, Neutrophils # 5.2, Lymphocytes # 4.68 H, Monocytes # 0.6, Eosinophils # 0.1, Absolute Basophils 0.0 04/21/19 19:55: Sodium 143 H, Plasma Sodium 143 H, Potassium 3.4, Chloride 107 H, Carbon Dioxide 26.1, Anion Gap 13.3, BUN 17, Creatinine 0.85, Est GFR (Non-Af Amer) 94, BUN/Creatinine Ratio 20.0, Random Glucose 121 H, Calcium 8.3, Calcium Adj for Albumin 8.7, Total Bilirubin 0.2, AST 8, ALT 19, Alkaline Phosphatase 67, Troponin I Less than 0.017, Total Protein 6.5, Albumin 3.1 L 04/21/19 21:17: Influenza Type A Ag Negative, Influenza Type B Ag Negative 04/22/19 11:28: Urine Color Yellow, Urine Appearance Clear, Urine pH 7.5, Ur Specific [place] 1.010, Urine Protein Negative, Urine Glucose (UA) Negative, Urine Ketones Negative, Urine Blood Negative, Urine Nitrate Negative, Urine Bilirubin Negative, Urine Urobilinogen Normal, Ur Leukocyte Esterase Negative, Urine RBC None seen, Urine WBC Trace, Ur Epithelial Cells 0-5, Urine Bacteria Trace Discharge Location: Home Disposition: Home self-care Condition: Good Discharge Activity: Activity as tolerated Discharge Diet: General/regular food Additional Patient Instructions (free text): keep appt with me on 05/07. labs that day. call as needed for problems or questions. Complete Home Medications List: Complete Home Medication List: diphenhydrAMINE HCL [Benadryl] 25 mg PO Q6H PRN 08/01/17 albuterol sulfate 90 mcg/actuation aerosol inhaler 2 puff IH .Every 4 hours PRN #8.5 g 10/09/18 nitroglycerin 0.4 mg sublingual tablet 0.4 mg SL [id number] PRN #100 tab 10/09/18 escitalopram oxalate 20 mg tablet 20 mg PO DAILY #30 tab 11/04/18 zolpidem 10 mg tablet 10 mg PO HS PRN #30 tab 11/20/18 amlodipine 5 mg tablet 5 mg PO DAILY 12/11/18 simvastatin 20 mg tablet 20 mg PO DAILY 12/11/18 montelukast 10 mg tablet 10 mg PO QPM #30 tab 12/16/18 metoprolol tartrate 50 mg tablet 25 mg PO BID #30 tab 12/21/18 Ondansetron [Zofran Odt] 8 mg PO Q6H PRN #20 tab.rapdis 12/26/18 polyethylene glycol 3350 17 gram/dose oral powder 8.5 g PO DAILY #255 g 01/27/19 dipyridamole 75 mg tablet 75 mg PO TID tab 02/17/19 dicyclomine 10 mg capsule See Rx Instructions .ROUTE .COMPLEX #120 unspecified 02/25/19 acetaminophen 300 mg-codeine 30 mg tablet 2 tab PO BID PRN #100 tab 03/18/19 clonazepam 1 mg tablet 1 mg PO BID #60 tab 03/18/19 cyclobenzaprine 10 mg tablet 10 mg PO HS #14 tab 03/18/19 cefdinir 300 mg capsule 300 mg PO BID 10 Days #20 cap 04/14/19 oxycodone-acetaminophen 5 mg-325 mg tablet 1 tab PO Q4H PRN #30 tab 04/14/19 prednisone 10 mg tablet 30 mg PO BID #60 tab 04/14/19 ipratropium 0.5 mg-albuterol 3 mg (2.5 mg base)/3 mL nebulization soln 3 ml IH QID PRN #15 ml 04/15/19 nebulizers See Rx Instructions .ROUTE .MEDSUPPLY #1 ea 04/15/19 Magnesium Hydroxide [Milk Of Magnesia] 30 ml PO BID #1800 ml 04/22/19
[2019-04-22] MEDS ORDERED: DICYCLOMINE HCL 10 MG CAPSULE PO SCH (13:00)
[2019-04-22] MEDS ORDERED: CYCLOBENZAPRINE HCL 10 MG TABLET PO SCH (13:00)
[2019-04-22] MEDS ORDERED: DIPYRIDAMOLE 75 MG TABLET PO SCH (13:00)
[2019-04-22 13:52] VITALS: BP 147/82
[2019-04-22] MEDS ORDERED: SIMVASTATIN 20 MG TABLET PO SCH (21:00)
[2019-04-22] MEDS ORDERED: MONTELUKAST SODIUM 10 MG TABLET PO SCH (21:00)
[2019-04-22] MEDS ORDERED: FLUTICASONE PROPION/SALMETEROL 14 PUFF DISK.W.DEV IH SCH (21:00)
[2019-04-23] MEDS ORDERED: ESCITALOPRAM OXALATE 10 MG TAB PO SCH (09:00)
[2019-04-23] MEDS ORDERED: amLODIPine BESYLATE 5 MG TABLET PO SCH (09:00)
== END 2019-04-22 14:05 | disposition home or self-care (01) ==
LOC: ER 18:44 → MS 18:44
PROVIDERS: ADMIT Family Medicine; ATTEND Allergy & Immunology
DX: F41.1 Generalized anxiety disorder; R59.1 Generalized enlarged lymph nodes; J45.41 Moderate persistent asthma with (acute) exacerbation; E66.01 Morbid (severe) obesity due to excess calories; M54.41 Lumbago with sciatica, right side; G89.29 Other chronic pain; N20.0 Calculus of kidney; M51.26 Other intervertebral disc displacement, lumbar region; K58.2 Mixed irritable bowel syndrome
CPT/HCPCS: 36415; 71020; 71046; 74000; 74018; 80053; 81001; 84484; 85025; 87400; 87449; 93005; 94640; 94664; 96365; 96372; 96375; 99285; G0378